=== PATIENT | male | born 1945 | race Caucasian/White ===

== ENCOUNTER 2019-01-11 06:11 | Day surgery (SDC) | payer MEDICARE, OTHER ==
[~2019-01-11] VITALS: Ht 167.6 cm; Wt 91.3 kg
[~2019-01-11 06:11] MED LIST: Allegra-D 12 H1 EACH PO; Co Q-10100 MG PO; FLONASE ALLERG9.9 ML NS; FLUT1DIS5 INH; KRILL OIL500 MG PO; MOVE FREE JOIN1 EACH PO; Multiple Vitam1 EAC1 PO; PRED20 PO; PROAIR RESPICL90 MCG INH
--- NOTE | 2019-01-11 07:24 | NUR ---
01/11/19 0724 Jared Balderas 1ST IV ATTEMPT IN RAC UNSUCCESSFUL, ORSCJIL 2ND IV ATTEMPT IN RAC SUCCESSFUL, ORSCTOD
--- NOTE | 2019-01-11 14:03 | NUR ---
01/11/[address] NOTIFIED THAT PT. HAD STARTED HIS PREDNISONE & ANTIBIOTICS & PER DR. JOE HE INSTRUCTS HIS PT. TO DO THIS. PT. SLEEPY & DOZES OFF & ON. PT.'S SATS DECREASED TO 87% ON RA WHEN HE DOZES BUT THEN GOES BACK UP WHEN HE IS ENC. TO TAKE DEEP BREATHS, SAT GO UP TO 96%. PT. TAKING SIPS OF WATER. AT HIS SIDE & ALSO ENC. TO HAVE HIM TAKE DEEP BREATHS. PT. VERBALIZES BEING WARM ENOUGH. APPLIED MUSTACHE DRESSING TO NOSE. PT. WITH DRIPS OF BLOOD OFF & ON. CALL LIGHT ON WALL & INSTRUCTED SHE COULD CALL IF NEEDED ANYTHING.
--- NOTE | 2019-01-12 09:24 | NUR ---
01/12/19 0924 Benita Mccrary LATE ENTRY: PT WAS GIVEN DUONEB TX PER DR LOPEZ ORDERS AT 1225, LUNGS WERE RHONCHUS AND HAD WHEEZING T/O
== END 2019-01-11 15:15 | disposition home or self-care (01) ==
LOC: ORSCSDS 06:11
PROVIDERS: Otolaryngology
PROC: 09DV4ZZ Extraction of Left Ethmoid Sinus, Percutaneous Endoscopic Approach (ICD-10-PCS; principal; 2019-01-11 07:30)
PROC: 09SM4ZZ Reposition Nasal Septum, Percutaneous Endoscopic Approach (ICD-10-PCS; principal; 2019-01-11 07:30)
PROC: 8E09XBZ Computer Assisted Procedure of Head and Neck Region (ICD-10-PCS; principal; 2019-01-11 07:30)
PROC: 09DU4ZZ Extraction of Right Ethmoid Sinus, Percutaneous Endoscopic Approach (ICD-10-PCS; principal; 2019-01-11 07:30)
DX: J32.4 Chronic pansinusitis (principal); I10 Essential (primary) hypertension; J44.9 Chronic obstructive pulmonary disease, unspecified; Z87.891 Personal history of nicotine dependence; Z79.899 Other long term (current) drug therapy
CPT/HCPCS: 88305; 88311; C2625; J0330; J1100; J2250; J2370; J3010; J3301; J7120

== ENCOUNTER → 2019-03-12 | Outpatient (CLI) | payer MEDICARE, OTHER ==
[2019-03-12 11:54] LABS: BASOPHILS ABSOLUTE AUTO 0.03 K/mm3 (0.00-0.23); BASOPHILS PERCENT AUTO 0 % (0-2); EOSINOPHILS ABSOLUTE AUTO 0.15 K/mm3 (0.00-0.68); EOSINOPHILS PERCENT AUTO 1 % (0-6); Hematocrit 40.7 % (37.0-53.0); Hemoglobin 13.1 g/dL (13.5-17.5); IMMATURE GRAN ABSOLUTE AUTO 0.05 K/mm3 (0.00-0.10); IMMATURE GRAN PERCENT AUTO 1 % (0-1); LYMPHOCYTES ABSOLUTE AUTO 0.73 K/mm3 (0.84-5.20); LYMPHOCYTES PERCENT AUTO 7 % (21-46); MONOCYTES ABSOLUTE AUTO 0.64 K/mm3 (0.16-1.47); MONOCYTES PERCENT AUTO 6 % (4-13); Mean Corpuscular HGB 28.3 pg (26.0-34.0); Mean Corpuscular HGB Conc 32.2 g/dL (31.5-36.5); Mean Corpuscular Volume 88 fL (80-100); Mean Platelet Volume 9.2 fL (9.1-12.4); NEUTROPHILS PERCENT AUTO 85 % (41-73); Platelet Count 271 K/mm3 (150-400); RDW Standard Deviation 41.7 fL (35.1-46.3); Red Blood Cell Count 4.63 M/mm3 (4.30-5.90)
[2019-03-12 12:08] LABS: Alanine Aminotransfer (ALT/SGP 20 U/L (12-78); Albumin, Blood 3.1 g/dL (3.4-5.0); Albumin/Globulin Ratio 0.7 (0.8-1.8); Alk Phos 108 U/L (40-126); Anion Gap 7 mmol/L (6-16); Aspartate Aminotrans (AST/SGOT 10 U/L (12-37); Bilirubin, Total 0.3 mg/dL (0.1-1.0); Blood Urea Nitrogen 14 mg/dL (8-24); Bun/Creatinine Ratio 15.9 (12.0-20.0); CO2, Blood 30 mmol/L (21-32); Calcium, Blood 8.8 mg/dL (8.5-10.1); Chloride, Blood 101 mmol/L (98-108); Creatinine, Blood 0.88 mg/dL (0.60-1.20); Globulin, Blood 4.4 g/dL (2.2-4.0); Glomerular Filtration Rate >60 (60-); Glucose, Blood 147 mg/dL (70-99); Potassium, Blood 3.8 mmol/L (3.5-5.5); Sodium, Blood 138 mmol/L (136-145); Total Protein, Blood 7.5 g/dL (6.4-8.2)
== END | disposition home or self-care (01) ==
LOC: LAB SHORT 11:47 → LAB EV 11:47
PROVIDERS: General Practice
DX: C91.90 Lymphoid leukemia, unspecified not having achieved remission (principal)
CPT/HCPCS: 80053; 85025; 85651

== ENCOUNTER 2019-08-11 07:08 | Day surgery (SDC) | payer MEDICARE, OTHER ==
[~2019-08-11] VITALS: Ht 167.6 cm; Wt 85.0 kg
--- NOTE | 2019-08-11 08:00 | NUR ---
08/11/19 0800 Bren Banda 1 IV MOSSIN RH BY JOEL REY 1GOOD IV IN RW BY JOEL RUCKER TOW
--- NOTE | 2019-08-11 09:52 | NUR ---
08/11/19 0952 Staci Curtis PT. WITH EXP. WHEEZES T.O. PT. STATES "USE TO BEING WHEEZY." PT. HAS COPD. PT. DENIES SOB.
== END 2019-08-11 09:40 | disposition home or self-care (01) ==
LOC: ORSCSDS 07:08
PROVIDERS: Internal Medicine Gastroenterology
PROC: 0DBP8ZX Excision of Rectum, Via Natural or Artificial Opening Endoscopic, Diagnostic (ICD-10-PCS; principal; 2019-08-11 08:30)
PROC: 0DBM8ZX Excision of Descending Colon, Via Natural or Artificial Opening Endoscopic, Diagnostic (ICD-10-PCS; principal; 2019-08-11 08:30)
PROC: 0DBH8ZX Excision of Cecum, Via Natural or Artificial Opening Endoscopic, Diagnostic (ICD-10-PCS; principal; 2019-08-11 08:30)
DX: Z12.11 Encounter for screening for malignant neoplasm of colon (principal); Z86.010 Personal history of colon polyps; D12.0 Benign neoplasm of cecum; D12.4 Benign neoplasm of descending colon; D12.8 Benign neoplasm of rectum; K57.30 Diverticulosis of large intestine without perforation or abscess without bleeding; K64.8 Other hemorrhoids; I10 Essential (primary) hypertension; Z87.891 Personal history of nicotine dependence; C95.91 Leukemia, unspecified, in remission; J44.9 Chronic obstructive pulmonary disease, unspecified; Z79.899 Other long term (current) drug therapy
CPT/HCPCS: 88305; J0461; J2405; J2704; J7120

== ENCOUNTER → 2020-09-26 | Outpatient (CLI) | payer MEDICARE, OTHER | LOC: LAB SHORT 19:58 → LAB 19:58 | DX: L08.9 Local infection of the skin and subcutaneous tissue, unspecified (principal); D69.2 Other nonthrombocytopenic purpura; L81.8 Other specified disorders of pigmentation; D18.01 Hemangioma of skin and subcutaneous tissue; L82.1 Other seborrheic keratosis; L81.4 Other melanin hyperpigmentation; Z71.89 Other specified counseling | CPT/HCPCS: 87070; 87077; 87186; 87205 ==

== ENCOUNTER 2024-09-06 08:54 | Day surgery (SDC) | payer MEDICARE, OTHER ==
[2024-09-06] VITALS (17 sets, daily range): BP systolic 115–171; BP diastolic 66–130
[~2024-09-06] VITALS: Ht 167.6 cm; Wt 99.2 kg
[~2024-09-06 08:54] MED LIST changes: +Lactated Ringer's 1,000 ML IV SCH; +ROSU5 PO
--- NOTE | 2024-09-06 09:46 | NUR ---
Ambulatory in Day Surgery. History, Chart, Medications and Allergies reviewed before start of procedure. Lungs clear T/O to Auscultation. Patient confirms NPO status and agrees with scheduled surgery. Pre-Op teaching done. Pt verbalizes understanding. Patient States Post-Procedure ride home has been arranged.
[2024-09-06] MEDS ORDERED: propofoL 40 ML IV ONE (10:24)
[2024-09-06] MEDS ORDERED: Midazolam HCl 1MG / ML 2ML Vial ONE (10:24)
--- NOTE | 2024-09-06 10:30 | NUR ---
09/06/24 1030 Francine Mcginnis CONFIRMED AND REVIEWED H&P, MEDCICATIONS, ALLERGIES, MEDICAL HISTORY, RESPIRATORY HISTORY, VITAL SIGNS, 3-LEAD EKG, CONSENTS, AND PHYSICIAN ORDERS. PATIENT CONFIRMS NPO STATUS AND AGREES WITH SCHEDULED PROCEDURE. MONITOR INTACT WITH CONTINUOUS PULSE OXIMETRY, CAPNOGRAPHY, 3-LEAD EKG, INTERMITTENT BP. SUPPLEMENTAL O2 TO BE TITRATED THROUGHOUT PROCEDURE TO MAINTAIN O2 SATURATION ABOVE 90%. PATIENT DETERMINED TO BE ASA APPROPRIATE FOR PROPOFOL SEDATION PRIOR TO START OF PROCEDURE BY .MALLAMPATI CLASS 3 AIRWAY: VISUALIZATION OF ONLY THE BASE OF THE UVULA.
--- NOTE | 2024-09-06 11:13 | NUR ---
Discharge instructions reviewed with patient. Patient verbalizes understanding. Copy given to patient to take home. Patient States Post-Procedure ride home has been arranged. PT DECLINES PO FLUIDS
--- NOTE | 2024-09-06 11:22 | NUR ---
Patient up to Ambulate independently. Gait steady. Discharged via wheelchair to private car for ride home.
== END 2024-09-06 11:24 | disposition home or self-care (01) ==
LOC: ORSCMMR 08:54 → ORD 09:30 → ORSCMMR 09:30
PROVIDERS: Internal Medicine Gastroenterology
PROC: 0DBP8ZX Excision of Rectum, Via Natural or Artificial Opening Endoscopic, Diagnostic (ICD-10-PCS; principal; 2024-09-06 09:30)
PROC: 0DBK8ZX Excision of Ascending Colon, Via Natural or Artificial Opening Endoscopic, Diagnostic (ICD-10-PCS; principal; 2024-09-06 09:30)
PROC: 0DBM8ZX Excision of Descending Colon, Via Natural or Artificial Opening Endoscopic, Diagnostic (ICD-10-PCS; principal; 2024-09-06 09:30)
DX: Z12.11 Encounter for screening for malignant neoplasm of colon (principal); D12.2 Benign neoplasm of ascending colon; K62.1 Rectal polyp; K63.5 Polyp of colon; K62.6 Ulcer of anus and rectum; Z86.0101 Personal history of adenomatous and serrated colon polyps; E78.00 Pure hypercholesterolemia, unspecified; N40.0 Benign prostatic hyperplasia without lower urinary tract symptoms; I10 Essential (primary) hypertension; Z85.6 Personal history of leukemia; Z79.899 Other long term (current) drug therapy
CPT/HCPCS: 88305; J2250; J2704; J7120

== ENCOUNTER 2025-05-02 15:49 | Inpatient (IN) | payer MEDICARE, OTHER ==
[~2025-05-02] VITALS: Ht 167.6 cm; Wt 98.0 kg
[~2025-05-02 15:49] MED LIST changes: -Lactated Ringer's 1,000 ML IV SCH
[2025-05-02] MEDS ORDERED: Ipratropium/Albuterol SulF 2.5-0.5MG/3 ML Amp INH ONE (16:10)
[2025-05-02] MEDS ORDERED: CefTRIAXone Sodium 2,000 MG in NS 100 ML IV ONE (16:40)
[2025-05-02] MEDS ORDERED: Azithromycin 250 MG Tab PO ONE (16:40)
[2025-05-02] MEDS ORDERED: ALBU90OI INH (16:40)
[2025-05-02 16:42] LABS: Hematocrit 33.1 % (37.0-53.0); Hemoglobin 10.3 g/dL (13.5-17.5); Mean Corpuscular HGB 27.2 pg (26.0-34.0); Mean Corpuscular HGB Conc 31.1 g/dL (31.5-36.5); Mean Corpuscular Volume 88 fL (80-100); Mean Platelet Volume 9.5 fL (9.1-12.4); Platelet Count 212 K/mm3 (150-400); RDW Coefficient Variation 14.6 % (11.7-14.2); Red Blood Cell Count 3.78 M/mm3 (4.30-5.90); White Blood Cell Count 10.74 K/mm3 (4.00-11.30)
[2025-05-02 17:14] LABS: BAND PERCENT MAN 1 % (0-8); BASOPHILS PERCENT MAN 1 % (0-2); EOSINOPHILS PERCENT MAN 0 % (0-6); LYMPHOCYTES ABSOLUTE MAN 0.21 K/mm3 (0.84-5.20); LYMPHOCYTES PERCENT MAN 2 % (21-46); MONOCYTES ABSOLUTE MAN 0.32 K/mm3 (0.16-1.47); MONOCYTES PERCENT MAN 3 % (4-13); NEUTROPHILS ABSOLUTE MAN 10.09 K/mm3 (1.96-9.15); SEG NEUTROPHILS PERCENT MAN 93 % (41-73); TOTAL CELLS COUNTED 100
[2025-05-02 17:19] LABS: Albumin, Blood 2.7 g/dL (3.4-5.0); Albumin/Globulin Ratio 0.5 (0.8-1.8); Bilirubin, Total 0.4 mg/dL (0.1-1.0); Bun/Creatinine Ratio 23.6 (12.0-20.0); Calcium, Blood 8.7 mg/dL (8.5-10.1); Creatinine, Blood 1.74 mg/dL (0.60-1.20); Globulin, Blood 5.1 g/dL (2.2-4.0); Potassium, Blood 4.7 mmol/L (3.5-5.5); Total Protein, Blood 7.8 g/dL (6.4-8.2)
[2025-05-02] MEDS ORDERED: Ipratropium/Albuterol SulF 2.5-0.5MG/3 ML Amp INH SCH (19:05)
[2025-05-02] MEDS ORDERED: Magnesium Hydroxide Conc 10 ML UDC PO PRN (19:10)
[2025-05-02] MEDS ORDERED: Magnesium Sulf 2 GM/Water 50ML 50 ML IV ONE (19:25)
[2025-05-02] MEDS ORDERED: Lactobacil 2-S.Thermo-Bifido 1 1 Cap PO SCH (21:00)
[2025-05-02] MEDS ORDERED: Insulin Regular 100 UNIT/ML 10ML Vial SC SCH (21:00)
[2025-05-02 22:41] VITALS: BP 165/92
[2025-05-03 04:01] VITALS: BP 161/88
[2025-05-03 04:48] LABS: BASOPHILS ABSOLUTE AUTO 0.01 K/mm3 (0.00-0.23); BASOPHILS PERCENT AUTO 0 % (0-2); EOSINOPHILS PERCENT AUTO 0 % (0-6); Hematocrit 36.2 % (37.0-53.0); Hemoglobin 11.1 g/dL (13.5-17.5); IMMATURE GRAN ABSOLUTE AUTO 0.05 K/mm3 (0.00-0.10); IMMATURE GRAN PERCENT AUTO 1 % (0-1); LYMPHOCYTES ABSOLUTE AUTO 0.43 K/mm3 (0.84-5.20); LYMPHOCYTES PERCENT AUTO 5 % (21-46); MONOCYTES ABSOLUTE AUTO 0.17 K/mm3 (0.16-1.47); MONOCYTES PERCENT AUTO 2 % (4-13); Mean Corpuscular HGB 27.3 pg (26.0-34.0); Mean Corpuscular HGB Conc 30.7 g/dL (31.5-36.5); Mean Corpuscular Volume 89 fL (80-100); Mean Platelet Volume 9.6 fL (9.1-12.4); NEUTROPHILS ABSOLUTE AUTO 7.95 K/mm3 (1.96-9.15); NEUTROPHILS PERCENT AUTO 92 % (41-73); Platelet Count 225 K/mm3 (150-400); RDW Coefficient Variation 14.2 % (11.7-14.2); RDW Standard Deviation 46.7 fL (35.1-46.3); Red Blood Cell Count 4.07 M/mm3 (4.30-5.90); White Blood Cell Count 8.61 K/mm3 (4.00-11.30)
[2025-05-03] MEDS ORDERED: Furosemide 10 MG/ML 4ML Vial IV ONE (05:00)
--- NOTE | 2025-05-03 05:36 | NUR ---
SHIFT SUMMARY PT ADMITTED TO ROOM 301 LAST EVENING FOR COPD/PNEUMONIA. PT IS ALERT AND ORIENTED, BUT FORGETFUL AND NOT A GOOD HISTORIAN. PT ON 2LNC WHILE AWAKE, BUT DESATTED TO 86-87 WHEN SLEEPING- OXY MASK PLACED AND O2 INCREASED TO 4L, WITH SATS ABOV 90%. AT BASELINE PT IS ON ROOM AIR. CONTINUOUS PULSE OX IN PLACE. PT HAS A HACKING, NONPRODUCTIVE COUGH. PT SLEPT INTERMITTENTLY DURING THE NIGHT. BED ALARM ON, BED IN LOWEST POSITION, CALL LIGHT WITHIN REACH, SIDERAILS UP X2.
[2025-05-03 05:47] LABS: Albumin, Blood 2.4 g/dL (3.4-5.0); Albumin/Globulin Ratio 0.4 (0.8-1.8); Bilirubin, Total 0.1 mg/dL (0.1-1.0); Bun/Creatinine Ratio 26.5 (12.0-20.0); Calcium, Blood 8.6 mg/dL (8.5-10.1); Creatinine, Blood 1.62 mg/dL (0.60-1.20); Globulin, Blood 5.4 g/dL (2.2-4.0); Magnesium, Blood 3.2 mg/dL (1.6-2.4); Potassium, Blood 4.9 mmol/L (3.5-5.5); Total Protein, Blood 7.8 g/dL (6.4-8.2)
[2025-05-03] MEDS ORDERED: MethylPREDNISolone Sod Succ 125 MG Vial IV SCH (06:00)
[2025-05-03 07:23] VITALS: BP 150/85
[2025-05-03] MEDS ORDERED: NS 250 ML IV PRN (08:10)
[2025-05-03] MEDS ORDERED: NS 1,000 ML IV SCH (08:30)
[2025-05-03] MEDS ORDERED: Azithromycin 250 MG Tab PO SCH (09:00)
[2025-05-03] MEDS ORDERED: CefTRIAXone Sodium 2,000 MG in NS 100 ML IV SCH (09:00)
[2025-05-03] MEDS ORDERED: Tamsulosin HCl 0.4 MG Cap PO SCH (09:00)
[2025-05-03] MEDS ORDERED: Enoxaparin 40 MG/0.4 ML SYR SC SCH (09:00)
[2025-05-03] MEDS ORDERED: Insulin Glargine-Yfgn 100 Unit/mL 3 ML SYR SC SCH (09:00)
[2025-05-03 11:11] VITALS: BP 135/78
[2025-05-03 16:19] VITALS: BP 130/69
--- NOTE | 2025-05-03 18:13 | NUR ---
SHIFT SUMMARY PATIENT ALERT AND INTERACTIVE. PATIENT CONTINUES TO BE EASILY SOB WITH ANY EXCERTION. ATTEMPTED TO TITRATE O2 DOWN. PATIENT REMAINS AT 4L NC. PATIENT DENIES ANY PAIN.
[2025-05-03 19:38] VITALS: BP 151/73
[2025-05-03] MEDS ORDERED: MethylPREDNISolone Sod Succ 40 MG VIAL IV ONE (22:00)
[2025-05-04] VITALS (7 sets, daily range): BP systolic 136–164; BP diastolic 64–78
--- NOTE | 2025-05-04 03:19 | NUR ---
SPORTS PSYCHOLOGIST SUMMARY VSS. HS BLOOD SUGAR COVERAGE GIVEN. ALERT AND ORIENTED. CONTINUOUS IVF INFUSING. COOPERATIVE WITH CARE. NO C/O PAIN. INTERMITTENT COUGHING. RT TREATMENTS GIVEN. O2 SATS IN THE 90'S. HAS BEEN RESTING QUIETLY AT INTERVALS THROUGHOUT SHIFT. LUNG SOUNDS DIMINISHED/WHEEZE PER AUSCULTATION. ORIENTED ON HOW TO USE BED CONTROL FOR OWN COMFORT. NS INFUSING AT 100 ML/HR. MED tribalX SINUS IN THE 90'S. CALL LIGHT IN REACH, RAILS UP X 2 AND BED IN LOW POSITION FOR SAFETY. WILL CONTINUE TO MONITOR.
[2025-05-04 04:38] LABS: BASOPHILS ABSOLUTE AUTO 0.01 K/mm3 (0.00-0.23); BASOPHILS PERCENT AUTO 0 % (0-2); EOSINOPHILS PERCENT AUTO 0 % (0-6); Hematocrit 30.7 % (37.0-53.0); Hemoglobin 9.7 g/dL (13.5-17.5); IMMATURE GRAN ABSOLUTE AUTO 0.12 K/mm3 (0.00-0.10); IMMATURE GRAN PERCENT AUTO 1 % (0-1); LYMPHOCYTES ABSOLUTE AUTO 0.49 K/mm3 (0.84-5.20); LYMPHOCYTES PERCENT AUTO 4 % (21-46); MONOCYTES ABSOLUTE AUTO 0.44 K/mm3 (0.16-1.47); MONOCYTES PERCENT AUTO 3 % (4-13); Mean Corpuscular HGB 27.5 pg (26.0-34.0); Mean Corpuscular HGB Conc 31.6 g/dL (31.5-36.5); Mean Corpuscular Volume 87 fL (80-100); Mean Platelet Volume 9.8 fL (9.1-12.4); NEUTROPHILS ABSOLUTE AUTO 12.93 K/mm3 (1.96-9.15); NEUTROPHILS PERCENT AUTO 92 % (41-73); Platelet Count 246 K/mm3 (150-400); RDW Coefficient Variation 14.4 % (11.7-14.2); RDW Standard Deviation 45.8 fL (35.1-46.3); Red Blood Cell Count 3.53 M/mm3 (4.30-5.90); White Blood Cell Count 13.99 K/mm3 (4.00-11.30)
[2025-05-04 05:07] LABS: Albumin, Blood 2.4 g/dL (3.4-5.0); Albumin/Globulin Ratio 0.5 (0.8-1.8); Bilirubin, Total 0.1 mg/dL (0.1-1.0); Bun/Creatinine Ratio 30.9 (12.0-20.0); Calcium, Blood 8.5 mg/dL (8.5-10.1); Creatinine, Blood 1.94 mg/dL (0.60-1.20); Globulin, Blood 4.6 g/dL (2.2-4.0); Magnesium, Blood 2.7 mg/dL (1.6-2.4); Potassium, Blood 4.2 mmol/L (3.5-5.5)
[2025-05-04] MEDS ORDERED: Dexamethasone Sodium Phosphate 4 MG/ML 1ML Vial IV SCH (09:00)
[2025-05-04] MEDS ORDERED: TAMSULOSIN HCL0.4 M1 PO (13:12)
[2025-05-04] MEDS ORDERED: ADVAIR INHALER (13:13)
[2025-05-04] MEDS ORDERED: Albuterol HFA200 ACT/6.7 GM INH INH PRN (13:35)
[2025-05-04] MEDS ORDERED: NS 1,000 ML IV SCH (18:00)
--- NOTE | 2025-05-04 18:00 | NUR ---
SHIFT SUMMARY PATIENT ALERT AND INTERACTIVE. PATIENT HAVING SOME EPISODES OF CONFUSION ESPECIALLY WHEN AWAKENED FROM DEEP SLEEP. PATIENT CONTINUES TO BE ON 4 L NC. SPUTUM SENT. PATIENT GIVEN FLUTTER AND IS WITH EDUCATION. PATIENT CONTINUES ON ANTIBIOTICS AND FLUIDS. PATIENT ABLE TO USE URINAL AT BEDSIDE.
[2025-05-05 05:02] LABS: BASOPHILS ABSOLUTE AUTO 0.03 K/mm3 (0.00-0.23); BASOPHILS PERCENT AUTO 0 % (0-2); EOSINOPHILS PERCENT AUTO 0 % (0-6); Hemoglobin 10.1 g/dL (13.5-17.5); IMMATURE GRAN ABSOLUTE AUTO 0.29 K/mm3 (0.00-0.10); IMMATURE GRAN PERCENT AUTO 2 % (0-1); LYMPHOCYTES PERCENT AUTO 11 % (21-46); MONOCYTES ABSOLUTE AUTO 1.03 K/mm3 (0.16-1.47); MONOCYTES PERCENT AUTO 8 % (4-13); Mean Corpuscular HGB 27.2 pg (26.0-34.0); Mean Corpuscular HGB Conc 30.6 g/dL (31.5-36.5); Mean Corpuscular Volume 89 fL (80-100); Mean Platelet Volume 9.9 fL (9.1-12.4); NEUTROPHILS ABSOLUTE AUTO 10.56 K/mm3 (1.96-9.15); NEUTROPHILS PERCENT AUTO 79 % (41-73); Platelet Count 274 K/mm3 (150-400); RDW Coefficient Variation 14.7 % (11.7-14.2); Red Blood Cell Count 3.72 M/mm3 (4.30-5.90); White Blood Cell Count 13.31 K/mm3 (4.00-11.30)
[2025-05-05 05:04] VITALS: BP 161/81
--- NOTE | 2025-05-05 05:36 | NUR ---
SHIFT SUMM: PT HAS HAD A RESTFUL EVENING WITH CONT NS INFUSING AT 75 ML/HR. PT HAS BEEN USING BEDSIDE URINAL AND BSC IND IN ROOM. PT HAS HAD A BIT OF A PRODUCTIVE COUGH AND CONT PULSE OX WITH 4L NC. PT IS A&OX4 AND HAS NO CONCERNS AT THIS TIME AND IS ABLE TO MAKE NEEDS KNOWN. PT IS ON TELE WITH SINUS TACH IN THE 110'S AND TACHYCARDIC WITH EXERTION. PT HAS CALL LIGHT IN REACH AND BED LOW AND LOCKED.
[2025-05-05 05:41] LABS: Albumin, Blood 2.4 g/dL (3.4-5.0); Albumin/Globulin Ratio 0.5 (0.8-1.8); Bilirubin, Total 0.1 mg/dL (0.1-1.0); Bun/Creatinine Ratio 32.8 (12.0-20.0); Calcium, Blood 8.6 mg/dL (8.5-10.1); Creatinine, Blood 1.77 mg/dL (0.60-1.20); Globulin, Blood 4.5 g/dL (2.2-4.0); Magnesium, Blood 2.4 mg/dL (1.6-2.4); Potassium, Blood 4.3 mmol/L (3.5-5.5); Total Protein, Blood 6.9 g/dL (6.4-8.2)
[2025-05-05 07:23] VITALS: BP 143/85
[2025-05-05 11:32] VITALS: BP 152/79
[2025-05-05] MEDS ORDERED: NS 1,000 ML IV SCH (11:45)
[2025-05-05] MEDS ORDERED: MethylPREDNISolone Sod Succ 125 MG Vial IV SCH (12:00)
[2025-05-05] MEDS ORDERED: Vancomycin HCL 1,500 MG in NS 250 ML IV ONE (12:05)
[2025-05-05 14:51] VITALS: BP 179/72
[2025-05-05] MEDS ORDERED: Dexamethasone Sodium Phosphate 4 MG/ML 1ML Vial IV SCH (16:00)
--- NOTE | 2025-05-05 18:11 | NUR ---
NOTE PT RESTING QUIETLY. ANTIBIOTIC CHANGE. DECADRON D/T PT RESPODING POORLY TO SOLUMEDROL ON wednesday. VSS. AC/HS BLOOD SUGARS. UP AD LUCRETIA. LUNGS WHEEZY WITH FLUTTER VALVE. WEANED FROM 4L TO 3L N/C. CONTINUIOUS PULSE OX. TELEMETRY SR 90'S. CARE ONGOING.
[2025-05-05 20:34] VITALS: BP 156/80
[2025-05-05 23:47] VITALS: BP 137/71
[2025-05-06] MEDS ORDERED: Vancomycin HCL 1,000 MG in NS 250 ML IV SCH
--- NOTE | 2025-05-06 03:32 | NUR ---
SHIFT SUMM: PT HAS BEEN RELAXING THIS SHIFT AND REPORTS FEELING BETTER. PT IS ON CONT PULSE OX AND MAINTAINING SATS ABOVE 92% ON 3L NC. PT STILL HAS PRODUCTIVE COUGH. PT HAS BEEN USING URINAL AND BSC IND. PT IS ON TELE W/NSR IN THE 80'S AND A BBB. PT DOES CONVERT INTO AFIB A COUPLE TIMES THIS SHIFT AND THEN BACK TO NSR. PT HAS PATENT RAC IV AND RECIEVED ANTIBIOTICS THIS SHIFT THROUGH IT. PT CALLS TO MAKE NEEDS KNOWN AND HAS CALL LIGHT IN REACH W/BED LOW AND LOCKED.
[2025-05-06 04:26] VITALS: BP 176/88
[2025-05-06 04:27] VITALS: BP 181/92
[2025-05-06 04:47] LABS: Hematocrit 34.3 % (37.0-53.0); Hemoglobin 10.4 g/dL (13.5-17.5); Mean Corpuscular HGB 27.2 pg (26.0-34.0); Mean Corpuscular HGB Conc 30.3 g/dL (31.5-36.5); Mean Corpuscular Volume 90 fL (80-100); Mean Platelet Volume 9.6 fL (9.1-12.4); Platelet Count 252 K/mm3 (150-400); RDW Coefficient Variation 14.9 % (11.7-14.2); RDW Standard Deviation 48.5 fL (35.1-46.3); Red Blood Cell Count 3.83 M/mm3 (4.30-5.90); White Blood Cell Count 10.55 K/mm3 (4.00-11.30)
[2025-05-06 05:05] LABS: Albumin, Blood 2.4 g/dL (3.4-5.0); Albumin/Globulin Ratio 0.5 (0.8-1.8); Bilirubin, Total 0.2 mg/dL (0.1-1.0); Bun/Creatinine Ratio 34.8 (12.0-20.0); Calcium, Blood 9.1 mg/dL (8.5-10.1); Creatinine, Blood 1.64 mg/dL (0.60-1.20); Globulin, Blood 4.4 g/dL (2.2-4.0); Magnesium, Blood 2.4 mg/dL (1.6-2.4); Potassium, Blood 5.2 mmol/L (3.5-5.5); Total Protein, Blood 6.8 g/dL (6.4-8.2)
[2025-05-06 05:06] LABS: BAND PERCENT MAN 2 % (0-8); BASOPHILS PERCENT MAN 0 % (0-2); EOSINOPHILS PERCENT MAN 0 % (0-6); LYMPHOCYTES ABSOLUTE MAN 1.05 K/mm3 (0.84-5.20); LYMPHOCYTES PERCENT MAN 10 % (21-46); MONOCYTES ABSOLUTE MAN 0.52 K/mm3 (0.16-1.47); MONOCYTES PERCENT MAN 5 % (4-13); NEUTROPHILS ABSOLUTE MAN 8.96 K/mm3 (1.96-9.15); SEG NEUTROPHILS PERCENT MAN 83 % (41-73); TOTAL CELLS COUNTED 100
[2025-05-06 07:19] VITALS: BP 174/86
[2025-05-06 10:58] VITALS: BP 166/77
[2025-05-06] MEDS ORDERED: Linezolid 600MG/Iso-Dext 300ML 300 ML IV SCH (11:00)
[2025-05-06 15:31] VITALS: BP 163/85
--- NOTE | 2025-05-06 16:45 | NUR ---
NOTE PT AWAKE AND ALERT. TALKING MORE. LESS COUGHING. WHEEZING HAS LESSONED. VSS. UP ADLIB. GOOD APPETITE. 3L N/C. WHEN HE TALKS ALOT SPO2 DROPS TO 89-90%. DENIED PAIN OR DISCOMFORT. HIS NEIGHBOR IS CHECKING ON HIS S/O. BED LOW AND LOCKED. CALL LIGHT WITH REACH. CARE ONGOING.
[2025-05-06 20:43] VITALS: BP 133/78
[2025-05-06] MEDS ORDERED: Dexamethasone Sodium Phosphate 4 MG/ML 1ML Vial IV SCH (21:00)
--- NOTE | 2025-05-06 23:46 | NUR ---
12 sec SVT per tele monitor Was sitting at bedside listening to patient and received call from chief telephone operator, Joseph Motta, regarding above tele reading. Patient denies chest pain, shortness of breath. AOx3. Asymptomatic. Labs reviewed. Call and notified Dr. Eva Fischer of findings. No new orders.
[2025-05-07 00:16] VITALS: BP 154/77
--- NOTE | 2025-05-07 04:21 | NUR ---
WHOLESALE MANAGER SUMMARY: PT A&O X4. MAKES NEEDS KNOWN. TELE; SR, BBB 70s. THIS NURSE NOTIFIED OF 12 SECOND SVT PER TELE MONITOR WHILE ON BREAK. SEE PREVIOUS NURSE NOTE. ASYMPTOMATIC. NO NEW ORDERS PER MD. CONTINUE TO MONITOR. RESTING IN BED. INDEPENDENT WITH BED MOBILITY AND USE OF URINAL AND BSC. NO ADVERSE SIDE EFFECTS TO IV ABX. DAY SHIFT NURSE REPORTS PT IS LESS WHEEZY. BED IN LOWEST POSITION. CALL LIGHT IN REACH. CARES ONGOING ORDERED.
[2025-05-07 05:20] VITALS: BP 154/82
[2025-05-07 06:08] LABS: Hematocrit 32.9 % (37.0-53.0); Hemoglobin 10.4 g/dL (13.5-17.5); Mean Corpuscular HGB 27.6 pg (26.0-34.0); Mean Corpuscular HGB Conc 31.6 g/dL (31.5-36.5); Mean Corpuscular Volume 87 fL (80-100); Mean Platelet Volume 9.7 fL (9.1-12.4); Platelet Count 295 K/mm3 (150-400); RDW Coefficient Variation 14.7 % (11.7-14.2); RDW Standard Deviation 47.7 fL (35.1-46.3); Red Blood Cell Count 3.77 M/mm3 (4.30-5.90)
[2025-05-07 06:30] LABS: BAND PERCENT MAN 2 % (0-8); BASOPHILS PERCENT MAN 0 % (0-2); EOSINOPHILS ABSOLUTE MAN 0.12 K/mm3 (0.00-0.68); EOSINOPHILS PERCENT MAN 1 % (0-6); LYMPHOCYTES ABSOLUTE MAN 1.34 K/mm3 (0.84-5.20); LYMPHOCYTES PERCENT MAN 11 % (21-46); METAMYELOCYTE ABSOLUTE MAN 0.12 K/mm3 (0.00-0.00); METAMYELOCYTE PERCENT MAN 1 % (0-0); MONOCYTES ABSOLUTE MAN 0.73 K/mm3 (0.16-1.47); MONOCYTES PERCENT MAN 6 % (4-13); NEUTROPHILS ABSOLUTE MAN 9.88 K/mm3 (1.96-9.15); SEG NEUTROPHILS PERCENT MAN 79 % (41-73); TOTAL CELLS COUNTED 100
[2025-05-07 06:32] LABS: Albumin, Blood 2.5 g/dL (3.4-5.0); Albumin/Globulin Ratio 0.6 (0.8-1.8); Bilirubin, Total 0.2 mg/dL (0.1-1.0); Bun/Creatinine Ratio 30.1 (12.0-20.0); Calcium, Blood 9.3 mg/dL (8.5-10.1); Creatinine, Blood 1.73 mg/dL (0.60-1.20); Globulin, Blood 4.1 g/dL (2.2-4.0); Magnesium, Blood 2.2 mg/dL (1.6-2.4); Potassium, Blood 4.7 mmol/L (3.5-5.5); Total Protein, Blood 6.6 g/dL (6.4-8.2)
[2025-05-07 07:41] VITALS: BP 149/70
[2025-05-07 16:04] VITALS: BP 150/70
--- NOTE | 2025-05-07 17:05 | NUR ---
NO ACUTE CHANGES PT HAS BEEN DOING WELL AND IS AOX4 AND COOPERATIVE OF ALL CARE. PT DOING WELL AND WORKED WALKING DOWN [address] WAY WITH PHYSICAL THERAPY. PT DENIED PAIN AND IS ABLE TO MAKE ALL NEEDS KNOWN. CALL LIGHT IS IN REACH. WILL CONTINUE TO MONITOR.
[2025-05-07 19:43] VITALS: BP 153/77
[2025-05-08 00:26] VITALS: BP 175/84
[2025-05-08 04:46] VITALS: BP 148/81
[2025-05-08 04:53] LABS: BASOPHILS ABSOLUTE AUTO 0.03 K/mm3 (0.00-0.23); BASOPHILS PERCENT AUTO 0 % (0-2); EOSINOPHILS ABSOLUTE AUTO 0.01 K/mm3 (0.00-0.68); EOSINOPHILS PERCENT AUTO 0 % (0-6); Hematocrit 33.5 % (37.0-53.0); Hemoglobin 10.5 g/dL (13.5-17.5); IMMATURE GRAN ABSOLUTE AUTO 0.62 K/mm3 (0.00-0.10); IMMATURE GRAN PERCENT AUTO 5 % (0-1); LYMPHOCYTES ABSOLUTE AUTO 1.19 K/mm3 (0.84-5.20); LYMPHOCYTES PERCENT AUTO 9 % (21-46); MONOCYTES ABSOLUTE AUTO 0.42 K/mm3 (0.16-1.47); MONOCYTES PERCENT AUTO 3 % (4-13); Mean Corpuscular HGB 26.7 pg (26.0-34.0); Mean Corpuscular HGB Conc 31.3 g/dL (31.5-36.5); Mean Corpuscular Volume 85 fL (80-100); Mean Platelet Volume 9.2 fL (9.1-12.4); NEUTROPHILS ABSOLUTE AUTO 10.43 K/mm3 (1.96-9.15); NEUTROPHILS PERCENT AUTO 82 % (41-73); Platelet Count 307 K/mm3 (150-400); RDW Standard Deviation 46.6 fL (35.1-46.3); Red Blood Cell Count 3.93 M/mm3 (4.30-5.90)
[2025-05-08 06:29] LABS: Magnesium, Blood 2.1 mg/dL (1.6-2.4)
[2025-05-08 06:31] LABS: Albumin, Blood 2.5 g/dL (3.4-5.0); Albumin/Globulin Ratio 0.6 (0.8-1.8); Bilirubin, Total 0.2 mg/dL (0.1-1.0); Creatinine, Blood 1.69 mg/dL (0.60-1.20); Globulin, Blood 4.1 g/dL (2.2-4.0); Potassium, Blood 5.3 mmol/L (3.5-5.5); Total Protein, Blood 6.6 g/dL (6.4-8.2)
[2025-05-08 07:46] VITALS: BP 117/74
--- NOTE | 2025-05-08 07:47 | NUR ---
BAGGAGE SMASHER SUMMARY: NO ACUTE CHANGES /EVENTS OVERNIGHT. PT SATING ABOVE 92% ON 2L NC. ANTICIPATED D/C HOME TODAY. INDEPENDENT WITH URNAL / BSC. BED IN LOWEST POSITION. CARES ONGOING ORDERED.
[2025-05-08 11:43] VITALS: BP 155/83
[2025-05-08] MEDS ORDERED: LINE600 PO (12:36)
[2025-05-08] MEDS ORDERED: ADVAIR HFA 230-28 GM INH (12:36)
[2025-05-08] MEDS ORDERED: PRED20 PO (12:37)
[2025-05-08] MEDS ORDERED: ROSUVASTATIN CA20 MG PO (12:38)
--- NOTE | 2025-05-08 14:26 | NUR ---
PT DISCHARGED HOME. RIDE PROVIDED BY FRIEND. PT SENT HOME ON O2 AND PROVIDED PORTABLE O2 DEVICE. DISCHARGED INSTRUCTIONS DISCUSSED WITH PATIENT. NO QUESTIONS OR CONCERNS AT THIS TIME
== END 2025-05-08 14:11 | disposition home or self-care (01) | DRG 177 ==
LOC: ER 15:49 → MEDS 15:50
PROVIDERS: Student in an Organized Health Care Education/Training Program; ADMIT Family Medicine
DX: J15.212 Pneumonia due to Methicillin resistant Staphylococcus aureus (principal); J96.01 Acute respiratory failure with hypoxia; N17.9 Acute kidney failure, unspecified; J44.0 Chronic obstructive pulmonary disease with (acute) lower respiratory infection; J44.1 Chronic obstructive pulmonary disease with (acute) exacerbation; E87.1 Hypo-osmolality and hyponatremia; D84.9 Immunodeficiency, unspecified; I47.10 Supraventricular tachycardia, unspecified; I50.30 Unspecified diastolic (congestive) heart failure; R73.03 Prediabetes; Z66 Do not resuscitate; I25.10 Atherosclerotic heart disease of native coronary artery without angina pectoris; N18.31 Chronic kidney disease, stage 3a; D63.1 Anemia in chronic kidney disease; N40.1 Benign prostatic hyperplasia with lower urinary tract symptoms; E78.5 Hyperlipidemia, unspecified; I45.10 Unspecified right bundle-branch block; T38.0X5A Adverse effect of glucocorticoids and synthetic analogues, initial encounter; Z85.6 Personal history of leukemia; Q90.9 Down syndrome, unspecified; Z85.828 Personal history of other malignant neoplasm of skin; Z86.0100 Personal history of colon polyps, unspecified; Z79.51 Long term (current) use of inhaled steroids; Z87.891 Personal history of nicotine dependence
CPT/HCPCS: 36415; 80053; 82947; 83036; 83605; 83735; 83880; 84145; 84484; 85025; 87040; 87070; 87077; 87147; 87186; 87205; 93005; 93010; 93306; 94640; 94760; 94761; 94762; 96365; 96366; 96367; 96372; 96375; 96376; 97116; 97162; 97530; 99285-25; A9270; G0378; J0696; J1100; J1650; J1815; J1938; J2020; J2919; J3370; J3475; J7030; J7050